=== PATIENT | male | born 1990 | race Caucasian/White ===

== ENCOUNTER 2020-02-18 08:27 | Emergency (ER) | payer BC ==
--- NOTE | 2020-02-18 08:56 | EDM.PDOC ---
ED HPI GENERAL MEDICAL PROBLEM - General Chief Complaint: ENT Problem Stated Complaint: COUGH/SORE THROAT Time Seen by Provider: 02/18/20 08:31 - History of Present Illness INITIAL COMMENTS - FREE TEXT/NARRATIVE: Complaining of a cough and sore throat for 2 weeks. It is worse in the morning and starts to resolve later in the day no chills no respiratory distress she went to see a primary care doctor last week and was prescribed a home sleep study which he supposedly completed nonproductive no chest pain he has not a great deal of nasal congestion but sore throat and cough. Exposures but he has been going to work with his cough - Related Data Allergies Allergy/AdvReac Type Severity Reaction Status Date / Time No Known Allergies Allergy Verified 02/18/20 08:37 Home Meds: Home Meds Benzonatate [Tessalon Perle] 100 mg PO Q4HR #20 capsule 02/18/20 [Rx] Past Medical History Neurological History: Reports: Seizure Other Neuro History: Seizures up until he was 11 caused by a stroke at - Infectious Disease History Infectious Disease History: Reports: Chicken Pox - Past Surgical History HEENT Surgical History: Reports: Adenoidectomy, Tonsillectomy Social & Family History - Tobacco Use Smoking Status *Q: Never Smoker - Caffeine Use Caffeine Use: Reports: Energy Drinks, Soda - Recreational Drug Use Recreational Drug Use: No ED ROS GENERAL - Review of Systems Review Of Systems: See Below ED EXAM, GENERAL - Physical Exam Exam: See Below Course - Vital Signs Text/Narrative:: Is counseled to not return to work if he is symptomatic with cough and sore throat signs in the emergency department are normal he will be discharged with Tessalon Perles he is encouraged to use Benadryl if he is having congestion Motrin or Tylenol for discomfort plenty of fluids follow-up with primary care Last Recorded V/S: Last Vital Signs Temp 36.1 C 02/18/20 08:38 Pulse 74 02/18/20 08:38 Resp 16 02/18/20 08:38 BP 136/86 02/18/20 08:38 Pulse Ox 95 02/18/20 08:38 Departure - Departure Time of Disposition: 08:56 Disposition: Home, Self-Care 01 Condition: Good Clinical Impression: Respiratory infection, upper - Discharge Information *PRESCRIPTION DRUG MONITORING PROGRAM REVIEWED*: Not Applicable *COPY OF PRESCRIPTION DRUG MONITORING REPORT IN PATIENT SAPNA: Not Applicable Instructions: Viral Respiratory Infection, [id number] Referrals: PCP,Unknown [Primary Care Provider] - Additional Instructions: The following information is given to patients seen in the emergency department who are being discharged to home. This information is to outline your options for follow-up care. We provide all patients seen in our emergency department with a follow-up referral. The need for follow-up, as well as the timing and circumstances, are variable depending upon the specifics of your emergency department visit. If you don't have a primary care physician on staff, we will provide you with a referral. We always advise you to contact your personal physician following an emergency department visit to inform them of the circumstance of the visit and for follow-up with them and/or the need for any referrals to a consulting specialist. The emergency department will also refer you to a specialist when appropriate. This referral assures that you have the opportunity for follow-up care with a specialist. All of these measure are taken in an effort to provide you with optimal care, which includes your follow-up. Under all circumstances we always encourage you to contact your private physician who remains a resource for coordinating your care. When calling for follow-up care, please make the office aware that this follow-up is from your recent emergency room visit. If for any reason you are refused follow-up, please contact the [facility] Emergency Department at and asked to speak to the emergency department charge nurse. [facility] [address] [place] [id number] [facility] [address] [place] [id number] Sepsis Event Note - Evaluation Sepsis Screening Result: No Definite Risk - Focused Exam Vital Signs: Vital Signs Temp Pulse Resp BP Pulse Ox 02/18/20 08:38 36.1 C 74 16 136/86 95 Date Exam was Performed: 02/18/20 Time Exam was Performed: 08:52
== END 2020-02-18 09:06 | disposition home or self-care (01) ==
LOC: MW.ED 08:27
DX: J06.9 Acute upper respiratory infection, unspecified (principal)
CPT/HCPCS: 99282; 99283